=== PATIENT | female | born 1960 | race Caucasian/White ===

== ENCOUNTER → 2024-07-16 14:02 | Outpatient (REF) | payer MEDICARE, OTHER, SELFPAY | LOC: HWWDC 14:02 | PROVIDERS: ATTENDING PHYSICIAN Obstetrics & Gynecology Gynecology; FAMILY PHYSICIAN Family Medicine | DX: Z12.31 Encounter for screening mammogram for malignant neoplasm of breast (principal) | CPT/HCPCS: 77063; 77067 ==